=== PATIENT | male | born 1955 | race Two or more races ===

== ENCOUNTER 2021-02-09 17:10 | Inpatient (IN) | payer OTHER ==
[2021-02-09] MEDS ORDERED: FUROSEMIDE 40 MG/4 ML INJECTABLE VIAL IVPUSH ONE (18:20)
[2021-02-09] MEDS ORDERED: chlordiazePOXIDE HCL 25 MG CAPSULE PO ONE (18:24)
[2021-02-09] MEDS ORDERED: FUROSEMIDE 40 MG/4 ML INJECTABLE VIAL ONE (18:59)
[2021-02-09 19:56] LABS: BASO % 0.6 % (0-2.0); EOS % 5.7 % (0-4.5); HEMATOCRIT 34.2 % (35.4-49); HEMOGLOBIN 11.8 GM/dL (11.7-16.9); LYMPH % 28.8 % (8-40); MCH 29.3 pg (25.7-33.7); MCHC 34.4 g/dl (32.0-35.9); MEAN PLT VOLUME 8.4 fl (7.5-11.1); MONO % 8.6 % (3.8-10.2); NEUT % 56.3 % (42.8-82.8); PLATELET COUNT 236 10^3/uL (134-434); RBC 4.03 M/mm3 (4.00-5.60); RDW 14.6 % (11.9-15.9); WHITE BLOOD COUNT 5.2 K/mm3 (4.0-10.0)
[2021-02-09 19:58] LABS: CHLORIDE 105 mmol/L (98-107); SODIUM 140 mmol/L (136-145)
[2021-02-09 20:00] LABS: ALBUMIN 2.8 g/dl (3.4-5.0); CALCIUM 8.8 mg/dL (8.5-10.1)
[2021-02-09 20:01] LABS: ANION GAP 8 MMOL/L (8-16); BLOOD UREA NITROGEN 22.7 mg/dL (7-18); CO2 26 mmol/L (21-32); GLUCOSE,RANDOM 92 mg/dL (74-106)
[2021-02-09 20:04] LABS: CREATININE 1.3 mg/dL (0.55-1.3); SGOT/AST 21 U/L (15-37); SGPT/ALT 16 U/L (13-61)
[2021-02-09 20:05] LABS: BILIRUBIN,TOTAL 0.4 mg/dL (0.2-1); TOT PROT 6.9 g/dl (6.4-8.2)
[2021-02-09 20:07] LABS: ALK PHOS 87 U/L (45-117)
[2021-02-09] MEDS ORDERED: ATORVASTATIN CA 80 MG TABLET (FP) PO ONE (20:16)
[2021-02-09] MEDS ORDERED: ASPIRIN 81 MG CHEWABLE TABLETS PO ONE (20:16)
[2021-02-09] MEDS ORDERED: ASPIRIN COATED 81 MG TABLET.EC ONE (20:23)
[2021-02-09] MEDS ORDERED: ASPIRIN 81 MG CHEWABLE TABLETS ONE (20:23)
[2021-02-09] MEDS ORDERED: ATORVASTATIN CA 80 MG TABLET (FP) ONE (20:23)
[2021-02-09 21:12] LABS: HIV INTERPRETATION NEGATIVE (NEGATIVE)
[2021-02-09] MEDS ORDERED: diazePAM 5 MG TABLET ONE (23:28)
[2021-02-09] MEDS ORDERED: LISINOPRIL 5 MG TABLET ONE (23:28)
[2021-02-09] MEDS ORDERED: FOLIC ACID 1 MG TABLET (FP) ONE (23:28)
[2021-02-09] MEDS: LISINOPRIL 10 MG TABLET PO SCH (23:33)
[2021-02-09] MEDS: diazePAM 5 MG TABLET PO SCH (23:33)
[2021-02-09] MEDS: FOLIC ACID 1 MG TABLET (FP) PO SCH (23:33)
[2021-02-10 00:03] LABS: METHADONE, UR NEGATIVE (NEGATIVE)
[2021-02-10 00:04] LABS: OPIATES, URI NEGATIVE (NEGATIVE); PHENCYCLIDINE,URINE NEGATIVE (NEGATIVE); URINE BARBITURATES NEGATIVE (NEGATIVE); URINE BENZODIAZEPINES NEGATIVE (NEGATIVE)
[2021-02-10 00:15] LABS: COCAINE, UR NEGATIVE (NEGATIVE); URINE AMPHETAMINES NEGATIVE (NEGATIVE)
[2021-02-10 00:18] LABS: EPI CELLS 4 /uL (0-25.1); HYALINE CASTS 1 /uL (0-3.1); URINE APPEARANCE CLEAR; URINE BACTERIA 83 /uL (0-1359); URINE BILIRUBIN NEGATIVE (NEGATIVE); URINE COLOR YELLOW; URINE GLUCOSE (UA) NEGATIVE (NEGATIVE); URINE KETONE NEGATIVE (NEGATIVE); URINE LEUK ESTERASE NEGATIVE (NEGATIVE); URINE NITRITE NEGATIVE (NEGATIVE); URINE PROTEIN 2+ (NEGATIVE); URINE RBC 12 /uL (0-23.9); URINE UROBILINOGEN 0.2 mg/dL (0.2-1.0); URINE WBC 14 /uL (0-25.8)
[2021-02-10] MEDS: diazePAM 5 MG TABLET PO SCH ×4 (05:00→22:08)
[2021-02-10] MEDS ORDERED: HEPARIN NA (PORCINE) 5,000 UNITS/ML 1ML VIAL SQ SCH (06:00)
[2021-02-10] MEDS ORDERED: diazePAM 5 MG TABLET ONE ×2 (06:24→10:26)
[2021-02-10] MEDS: diazePAM 5 MG TABLET PO PRN (06:26)
[2021-02-10 06:30] LABS: BASO % 0.7 % (0-2.0); EOS % 8.1 % (0-4.5); HEMATOCRIT 34.6 % (35.4-49); HEMOGLOBIN 11.6 GM/dL (11.7-16.9); LYMPH % 31.1 % (8-40); MCH 29.4 pg (25.7-33.7); MCHC 33.5 g/dl (32.0-35.9); MEAN CELL VOLUME 87.6 fl (80-96); MEAN PLT VOLUME 8.5 fl (7.5-11.1); MONO % 10.1 % (3.8-10.2); PLATELET COUNT 233 10^3/uL (134-434); RBC 3.95 M/mm3 (4.00-5.60); WHITE BLOOD COUNT 4.6 K/mm3 (4.0-10.0)
[2021-02-10 06:50] LABS: ALBUMIN 2.6 g/dl (3.4-5.0); BLOOD UREA NITROGEN 20.4 mg/dL (7-18); CALCIUM 8.5 mg/dL (8.5-10.1)
[2021-02-10 06:51] LABS: MAGNESIUM 1.9 mg/dL (1.8-2.4)
[2021-02-10 06:53] LABS: CREATININE 1.2 mg/dL (0.55-1.3)
[2021-02-10 06:54] LABS: PHOSPHOROUS 3.1 mg/dL (2.5-4.9); TOT PROT 6.1 g/dl (6.4-8.2)
[2021-02-10 06:55] LABS: BILIRUBIN,TOTAL 0.9 mg/dL (0.2-1)
[2021-02-10] MEDS ORDERED: THIAMINE HCL 200 MG/2 ML VIAL IVPB ONE (07:55)
[2021-02-10] MEDS ORDERED: PERMETHRIN (NIX CREAM SCALP RINSE) 59 ML 1% BOTTLE TP ONE ×2 (08:00→09:22)
[2021-02-10] MEDS ORDERED: PERMETHRIN 5% TOPICAL CREAM 60 GM TUBE TP ONE (09:22)
[2021-02-10] MEDS ORDERED: THIAMINE HCL 100 MG TABLET (FP) PO SCH (10:00)
[2021-02-10] MEDS ORDERED: THIAMINE HCL 200 MG/2 ML VIAL ONE (10:15)
[2021-02-10] MEDS ORDERED: MULTIVITAMINS (DAILY MVI) TABLET (FP) ONE (10:15)
[2021-02-10] MEDS ORDERED: ENOXAPARIN NA (PORCINE) 40 MG/0.4 ML DISP.SYRIN SQ ONE (10:16)
[2021-02-10] MEDS ORDERED: ASPIRIN 81 MG CHEWABLE TABLETS ONE (10:16)
[2021-02-10] MEDS ORDERED: PANTOPRAZOLE 40 MG TABLET ONE (10:16)
[2021-02-10] MEDS ORDERED: FOLIC ACID 1 MG TABLET (FP) ONE (10:26)
[2021-02-10] MEDS: ASPIRIN COATED 81 MG TABLET.EC PO SCH (10:52)
[2021-02-10] MEDS: LISINOPRIL 10 MG TABLET PO SCH (10:52)
[2021-02-10] MEDS: ENOXAPARIN NA (PORCINE) 40 MG/0.4 ML DISP.SYRIN SQ SCH (10:52)
[2021-02-10] MEDS: FOLIC ACID 1 MG TABLET (FP) PO SCH (10:52)
[2021-02-10] MEDS: CYANOCOBALAMIN 1,000 MCG TABLET (FP) PO SCH (10:53)
[2021-02-10] MEDS: MULTIVITAMINS (DAILY MVI) TABLET (FP) PO SCH (10:53)
[2021-02-10] MEDS: PANTOPRAZOLE 40 MG TABLET PO SCH (10:53)
[2021-02-10] MEDS ORDERED: POTASSIUM CHLORIDE TABS 20 MEQ TABLET.ER (FP) PO ONE (12:16)
[2021-02-10] MEDS: ATORVASTATIN CA 40 MG TABLET (FP) PO SCH (21:50)
[2021-02-11] MEDS: diazePAM 5 MG TABLET PO SCH ×3 (05:35→22:06)
[2021-02-11] MEDS: FOLIC ACID 1 MG TABLET (FP) PO SCH (09:12)
[2021-02-11] MEDS: ENOXAPARIN NA (PORCINE) 40 MG/0.4 ML DISP.SYRIN SQ SCH (09:13)
[2021-02-11] MEDS: LISINOPRIL 20 MG TABLET PO SCH (09:13)
[2021-02-11] MEDS: PANTOPRAZOLE 40 MG TABLET PO SCH (09:13)
[2021-02-11] MEDS: ASPIRIN COATED 81 MG TABLET.EC PO SCH (09:13)
[2021-02-11] MEDS: THIAMINE HCL 100 MG TABLET (FP) PO SCH (09:13)
[2021-02-11] MEDS: CYANOCOBALAMIN 1,000 MCG TABLET (FP) PO SCH (09:13)
[2021-02-11] MEDS: MULTIVITAMINS (DAILY MVI) TABLET (FP) PO SCH (09:13)
[2021-02-11 10:20] LABS: HEMATOCRIT 33.4 % (35.4-49); HEMOGLOBIN 11.1 GM/dL (11.7-16.9); MCH 29.3 pg (25.7-33.7); MCHC 33.2 g/dl (32.0-35.9); MEAN CELL VOLUME 88.4 fl (80-96); MEAN PLT VOLUME 9.2 fl (7.5-11.1); PLATELET COUNT 230 10^3/uL (134-434); RBC 3.78 M/mm3 (4.00-5.60); RDW 14.9 % (11.9-15.9); WHITE BLOOD COUNT 4.9 K/mm3 (4.0-10.0)
[2021-02-11 10:43] LABS: BLOOD UREA NITROGEN 21.6 mg/dL (7-18); CALCIUM 8.5 mg/dL (8.5-10.1)
[2021-02-11 10:46] LABS: CREATININE 1.4 mg/dL (0.55-1.3)
[2021-02-11 10:47] LABS: PHOSPHOROUS 2.4 mg/dL (2.5-4.9)
[2021-02-11 13:06] VITALS: BMI 24.4
[2021-02-11] MEDS: CARVEDILOL 6.25 MG TABLET (FP) PO SCH ×2 (16:41→22:05)
[2021-02-11] MEDS: SENNOSIDES 8.6MG TABLET (FP) PO SCH (22:05)
[2021-02-11] MEDS: ATORVASTATIN CA 40 MG TABLET (FP) PO SCH (22:05)
[2021-02-11] MEDS: DOCUSATE SODIUM 100 MG CAPSULE (FP) PO SCH (22:05)
[2021-02-12] MEDS: diazePAM 5 MG TABLET PO SCH ×2 (06:09→17:33)
[2021-02-12] MEDS ORDERED: NAPH,MB-DB/K PH,MBDB POWDER PACKET PO ONE (08:45)
[2021-02-12] MEDS: ASPIRIN COATED 81 MG TABLET.EC PO SCH (09:42)
[2021-02-12] MEDS: ENOXAPARIN NA (PORCINE) 40 MG/0.4 ML DISP.SYRIN SQ SCH (09:42)
[2021-02-12] MEDS: CARVEDILOL 6.25 MG TABLET (FP) PO SCH ×2 (09:42→21:52)
[2021-02-12] MEDS: MULTIVITAMINS (DAILY MVI) TABLET (FP) PO SCH (09:42)
[2021-02-12] MEDS: CYANOCOBALAMIN 1,000 MCG TABLET (FP) PO SCH (09:42)
[2021-02-12] MEDS: FOLIC ACID 1 MG TABLET (FP) PO SCH (09:42)
[2021-02-12] MEDS: PANTOPRAZOLE 40 MG TABLET PO SCH (09:42)
[2021-02-12] MEDS: THIAMINE HCL 100 MG TABLET (FP) PO SCH (09:42)
[2021-02-12] MEDS: LISINOPRIL 20 MG TABLET PO SCH (09:42)
[2021-02-12] MEDS: ACETAMINOPHEN 325 MG TABLET (FP) PO PRN (09:52)
[2021-02-12] MEDS: POLYETHYLENE GLYCOL (HEALTHYLAX) 3350 17 GM PACKET PO SCH (11:42)
[2021-02-12] MEDS: diazePAM 5 MG TABLET PO PRN (21:51)
[2021-02-12] MEDS: DOCUSATE SODIUM 100 MG CAPSULE (FP) PO SCH (21:52)
[2021-02-12] MEDS: SENNOSIDES 8.6MG TABLET (FP) PO SCH (21:52)
[2021-02-12] MEDS: ATORVASTATIN CA 40 MG TABLET (FP) PO SCH (21:52)
[2021-02-13] MEDS ORDERED: diazePAM 5 MG TABLET PO ONE (06:00)
[2021-02-13 06:59] LABS: BASO % 0.8 % (0-2.0); EOS % 6.2 % (0-4.5); HEMATOCRIT 32.4 % (35.4-49); HEMOGLOBIN 11.3 GM/dL (11.7-16.9); LYMPH % 33.5 % (8-40); MCH 29.7 pg (25.7-33.7); MCHC 34.8 g/dl (32.0-35.9); MEAN CELL VOLUME 85.3 fl (80-96); MEAN PLT VOLUME 8.6 fl (7.5-11.1); MONO % 8.9 % (3.8-10.2); NEUT % 50.6 % (42.8-82.8); PLATELET COUNT 239 10^3/uL (134-434); RBC 3.79 M/mm3 (4.00-5.60); RDW 14.7 % (11.9-15.9); WHITE BLOOD COUNT 4.8 K/mm3 (4.0-10.0)
[2021-02-13 07:20] LABS: ALBUMIN 2.5 g/dl (3.4-5.0); CALCIUM 8.9 mg/dL (8.5-10.1)
[2021-02-13 07:21] LABS: BLOOD UREA NITROGEN 21.4 mg/dL (7-18); MAGNESIUM 1.9 mg/dL (1.8-2.4)
[2021-02-13 07:22] LABS: CREATININE 1.3 mg/dL (0.55-1.3)
[2021-02-13 07:23] LABS: PHOSPHOROUS 3.7 mg/dL (2.5-4.9)
[2021-02-13 07:26] LABS: TOT PROT 6.1 g/dl (6.4-8.2)
[2021-02-13 07:28] LABS: BILIRUBIN,TOTAL 0.6 mg/dL (0.2-1)
[2021-02-13] MEDS: POLYETHYLENE GLYCOL (HEALTHYLAX) 3350 17 GM PACKET PO SCH (10:14)
[2021-02-13] MEDS: ENOXAPARIN NA (PORCINE) 40 MG/0.4 ML DISP.SYRIN SQ SCH (10:15)
[2021-02-13] MEDS: THIAMINE HCL 100 MG TABLET (FP) PO SCH (10:15)
[2021-02-13] MEDS: ACETAMINOPHEN 325 MG TABLET (FP) PO PRN (10:15)
[2021-02-13] MEDS: CARVEDILOL 6.25 MG TABLET (FP) PO SCH (10:16)
[2021-02-13] MEDS: CYANOCOBALAMIN 1,000 MCG TABLET (FP) PO SCH (10:16)
[2021-02-13] MEDS: FOLIC ACID 1 MG TABLET (FP) PO SCH (10:17)
[2021-02-13] MEDS: PANTOPRAZOLE 40 MG TABLET PO SCH (10:17)
[2021-02-13] MEDS: ASPIRIN COATED 81 MG TABLET.EC PO SCH (10:17)
[2021-02-13] MEDS: MULTIVITAMINS (DAILY MVI) TABLET (FP) PO SCH (10:17)
[2021-02-13] MEDS: LISINOPRIL 20 MG TABLET PO SCH (10:17)
[2021-02-13] MEDS: amLODIPine BESYLATE 5 MG TABLET (FP) PO SCH (15:34)
[2021-02-13] MEDS ORDERED: diazePAM 2 MG TABLET PO PRN (16:32)
[2021-02-13] MEDS: SENNOSIDES 8.6MG TABLET (FP) PO SCH (22:42)
[2021-02-13] MEDS: ATORVASTATIN CA 40 MG TABLET (FP) PO SCH (22:42)
[2021-02-13] MEDS: DOCUSATE SODIUM 100 MG CAPSULE (FP) PO SCH (22:42)
[2021-02-13] MEDS: CARVEDILOL 12.5 MG TABLET (FP) PO SCH (22:42)
[2021-02-14 06:59] LABS: BASO % 2.2 % (0-2.0); EOS % 5.2 % (0-4.5); HEMATOCRIT 33.4 % (35.4-49); HEMOGLOBIN 11.6 GM/dL (11.7-16.9); LYMPH % 33.2 % (8-40); MCH 29.5 pg (25.7-33.7); MCHC 34.7 g/dl (32.0-35.9); MEAN CELL VOLUME 85.1 fl (80-96); MEAN PLT VOLUME 8.4 fl (7.5-11.1); MONO % 7.2 % (3.8-10.2); NEUT % 52.2 % (42.8-82.8); PLATELET COUNT 240 10^3/uL (134-434); RBC 3.93 M/mm3 (4.00-5.60); RDW 14.8 % (11.9-15.9); WHITE BLOOD COUNT 4.7 K/mm3 (4.0-10.0)
[2021-02-14 07:24] LABS: CALCIUM 8.9 mg/dL (8.5-10.1)
[2021-02-14 07:25] LABS: ALBUMIN 2.6 g/dl (3.4-5.0); MAGNESIUM 2.1 mg/dL (1.8-2.4)
[2021-02-14 07:28] LABS: CREATININE 1.2 mg/dL (0.55-1.3); PHOSPHOROUS 3.6 mg/dL (2.5-4.9)
[2021-02-14 07:30] LABS: BILIRUBIN,TOTAL 0.5 mg/dL (0.2-1); TOT PROT 6.3 g/dl (6.4-8.2)
[2021-02-14] MEDS: ASPIRIN COATED 81 MG TABLET.EC PO SCH (09:25)
[2021-02-14] MEDS: PANTOPRAZOLE 40 MG TABLET PO SCH (09:25)
[2021-02-14] MEDS: ENOXAPARIN NA (PORCINE) 40 MG/0.4 ML DISP.SYRIN SQ SCH (09:25)
[2021-02-14] MEDS: CARVEDILOL 12.5 MG TABLET (FP) PO SCH (09:25)
[2021-02-14] MEDS: CYANOCOBALAMIN 1,000 MCG TABLET (FP) PO SCH (09:25)
[2021-02-14] MEDS: amLODIPine BESYLATE 5 MG TABLET (FP) PO SCH (09:25)
[2021-02-14] MEDS: THIAMINE HCL 100 MG TABLET (FP) PO SCH (09:25)
[2021-02-14] MEDS: LISINOPRIL 20 MG TABLET PO SCH (09:25)
[2021-02-14] MEDS: FOLIC ACID 1 MG TABLET (FP) PO SCH (09:25)
[2021-02-14] MEDS: MULTIVITAMINS (DAILY MVI) TABLET (FP) PO SCH (09:25)
[2021-02-14] MEDS: POLYETHYLENE GLYCOL (HEALTHYLAX) 3350 17 GM PACKET PO SCH (09:26)
[2021-02-14] MEDS: ACETAMINOPHEN 325 MG TABLET (FP) PO PRN (09:30)
[2021-02-14] MEDS ORDERED: amLODIPine BESYLATE 5 MG TABLET (FP) PO ONE (14:00)
[2021-02-14] MEDS ORDERED: amLODIPine BESYLATE 5 MG TABLET (FP) PO SCH (14:01)
[2021-02-14 18:33] VITALS: BP 145/88; PULSE 73; TEMP 98.2
[2021-02-15] MEDS ORDERED: amLODIPine BESYLATE 10 MG TABLET (FP) PO SCH (10:00)
== END 2021-02-14 18:52 | disposition home or self-care (01) | DRG 199 ==
LOC: JER 17:10 → JERBED 18:34 → J4S 02-10 15:40
PROVIDERS: ATTEND Internal Medicine
DX: I16.0 Hypertensive urgency (principal); I45.81 Long QT syndrome; R63.4 Abnormal weight loss; F10.230 Alcohol dependence with withdrawal, uncomplicated; M17.11 Unilateral primary osteoarthritis, right knee; F17.210 Nicotine dependence, cigarettes, uncomplicated; Z68.24 Body mass index [BMI] 24.0-24.9, adult; B85.2 Pediculosis, unspecified
CPT/HCPCS: 36415; 71045-TC-FY; 73562-TC-RT-FY; 80048; 80053; 80061; 80307; 81003; 82550; 82553; 83735; 83880; 84100; 84439; 84443; 84484; 85025; 85027; 87086; 87389; 93005; 93010; 93306-TC; 99285-25